=== PATIENT | female | born 1965 | race Caucasian/White ===

== ENCOUNTER → 2021-08-30 10:10 | Outpatient (BNVA) | payer BC, SELFPAY | PROVIDERS: Visit Provider Emergency Medicine | DX: Z20.822 Contact with and (suspected) exposure to COVID-19 (principal); R68.89 Other general symptoms and signs | CPT/HCPCS: 87635 ==

== ENCOUNTER 2022-03-06 17:08 | Emergency (ER) | payer BC, SELFPAY ==
[2022-03-06] VITALS (8 sets, daily range): BP systolic 107–150; BP diastolic 66–84; PULSE 70–82; RESP 14–18; TEMP 36.9; O2SAT 94–98; BMI 25.4
--- NOTE | 2022-03-06 18:58 | ED_ITS ---
HPI - Abdominal Pain General: Chief Complaint: Abdominal Pain Stated Complaint: sent from clinic, possible appy Time Seen by Provider: 03/06/22 18:58 History of Present Illness: Ms. Stein is a 56-year-old lady with history of hypertension and history of abdominal surgeries including cholecystectomy and hernia repair presenting to the emergency department due to right lower quadrant abdominal pain. Onset of symptoms was 2 days ago without known provoking event. Since that time has had sharp stabbing pain which has been constant and worsening. Worse with ambulation. Does note nausea but no vomiting. No other associated GI symptoms. Presented to outside clinic and was referred to the emergency department for further evaluation due to concern of appendicitis. No other specific changes in health, exacerbating, or alleviating factors identified. Onset (ago): hour(s) Pain Consistency: constant Location: RLQ Severity: moderate Quality: stabbing and sharp Radiation: none Migration to: no migration Exacerbating factors: movement and other (Ambulation) Relieving factors: nothing Associated Symptoms: Reports nausea; Denies constipation, diarrhea, dysuria and vomiting Review of Systems General: Reports: 10 or more systems reviewed and unremarkable except in HPI and below GI: Reports: nausea; Denies: vomiting, diarrhea or constipation : Denies: dysuria PFSH ED PFSH: Medical History (Updated 03/06/22 @ 22:24 by Eber Palacio MD) Hypertension Surgical History (Updated 03/06/22 @ 19:15 by Eber Palacio MD) History of cholecystectomy History of hernia repair Social History Smoking and tobacco status: current every day smoker Female Reproductive History: Spontaneous abortions: No Physical Exam Const: COMMON NORMALS: alert GENERAL APPEARANCE: cooperative and well developed HENMT: COMMON NORMALS: normocephalic and atraumatic HEAD & SCALP: normocephalic and atraumatic Eye: COMMON NORMALS: conjunctivae normal CONJUNCTIVA: Yes conjunctivae normal SCLERA: sclerae normal Neck/C-Spine: COMMON NORMALS: supple GENERAL: Yes trachea midline Resp: COMMON NORMALS: clear to auscultation bilaterally EFFORT & INSPECTION: Yes able to speak in complete sentences AUSCULTATION: clear to auscultation bilaterally Cardio: COMMON NORMALS: regular rate and regular rhythm RATE: regular rate RHYTHM: regular rhythm GI: COMMON NORMALS: Soft to palpation PALPATION: Yes Soft to palpation, Yes Tenderness to palpation present (GI) Details: RLQ, No Guarding due to palpation present (GI), No Rigid due to palpation and Yes Rebound tenderness present (Right lower quadrant tenderness to heeltap) PERCUSSION: normal to percussion Extremity: GENERAL: Yes normal exam except as noted and No edema Neuro: COMMON NORMALS: moves all extremities SENSORIUM/ORIENTATION: Yes alert and No Orientation impaired Psych: COMMON NORMALS: mental status grossly normal and Normal thought process present THOUGHT PROCESS: Normal thought process present Course Vital Signs: Vital signs: Vital Signs Temperature 98.5 F 03/06/22 17:23 Pulse Rate 74 03/06/22 23:29 Respiratory Rate 17 03/06/22 23:29 Blood Pressure 107/70 03/06/22 23:29 Pulse Oximetry 96 03/06/22 23:29 Oxygen Delivery Me thod 03/06/22 20:52 MDM - Abdominal Pain Medical Decision Making 56-year-old lady presenting with abdominal pain and associated symptoms. Patient is nontoxic on exam. Abdominal exam as above without evidence of acute surgical abdomen. Labs with minimal leukocytosis and hemoconcentration. No significant electrolyte abnormality. Hematuria with squamous epithelial contamination on urinalysis though there is bacteria. Given abdominal exam I do feel that CT imaging is appropriate. CT imaging without acute causes of patient's symptoms identified. Appendix is normal and visualized per radiology report. Patient proved with antiemetic, analgesia. She is able to tolerate p.o. intake. The exact etiology of patient's symptoms is unspecified abdominal pain, perhaps related to urinary infection. The results of ED evaluation were discussed with the patient including prescriptions and/or symptomatic cares (if applicable) including appropriate and responsible use, followup plan, and return precautions. The patient verbalized understanding and felt safe for discharge. Medical Records I reviewed the patient's medical records. Lab Data I reviewed the patient's lab results. 03/06/22 19:00 03/06/22 19:00 Labs/Radiology: Radiology Impressions Abdomen/Pelvis CT 03/06/22 19:13 IMPRESSION: 1. The appendix is normal in appearance. No evidence of appendicitis. 2. No acute abnormality demonstrated in the abdomen and pelvis. COMMENTS: Consistent with the [employer]'s Incidental Findings Committee white paper (J Am Luis Alberto Radiol 2018): Any incidental renal lesion less than 1 cm or classified as too small to characterize, or any incidental cystic renal lesion characterized as simple-appearing, is likely benign. No follow-up imaging is recommended for these lesions per consensus recommendations based on imaging criteria. Laboratory Results WBC 11.1 10^3/uL (4.0-10.0) H 03/06/22 19:00 RBC 4.94 10^6/uL (4.1-5.3) 03/06/22 19:00 Hgb 15.5 g/dL (11.5-15.3) H 03/06/22 19:00 Hct 46.2 % (37.0-47.0) 03/06/22 19:00 MCV 93.5 fl (81-99) 03/06/22 19:00 MCH 31.4 pg (28.0-34.0) 03/06/22 19:00 MCHC 33.5 g/dL (30.0-36.0) 03/06/22 19:00 RDW 12.9 % (12.1-15.1) 03/06/22 19:00 Plt Count 288 10^3/cmm (130-400) 03/06/22 19:00 MPV 9.2 fL (7.4-10.4) 03/06/22 19:00 Neut % (Auto) 50.4 % 03/06/22 19:00 Lymph % (Auto) 34.5 % 03/06/22 19:00 [place] % (Auto) 10.7 % 03/06/22 19:00 Eos % (Auto) 3.2 % 03/06/22 19:00 Baso % (Auto) 0.8 % 03/06/22 19:00 Neut # (Auto) 5.59 10^3/uL (1.8-7.7) 03/06/22 19:00 Lymph # (Auto) 3.8 10^3/uL (0.8-4.8) 03/06/22 19:00 [place] # (Auto) 1.2 10^3/uL (0.2-0.9) H 03/06/22 19:00 Eos # (Auto) 0.4 10^3/uL (0.0-0.8) 03/06/22 19:00 Baso # (Auto) 0.1 10^3/uL (0.0-0.1) 03/06/22 19:00 Nucleated RBC % (auto) 0 % 03/06/22 19:00 Nucleated RBCs # 0.0 /100WBC 03/06/22 19:00 Sodium 139 mmol/L (136-145) 03/06/22 19:00 Potassium 4.6 mmol/L (3.5-5.1) 03/06/22 19:00 Chloride 103 mmol/L (98-107) 03/06/22 19:00 Carbon Dioxide 27 mmol/L (22-29) 03/06/22 19:00 Anion Gap 13.6 (5-19) 03/06/22 19:00 BUN 8 mg/dL (6-20) 03/06/22 19:00 Creatinine 0.6 mg/dL (0.5-0.9) 03/06/22 19:00 GFR Calculation 103.4 mL/min (90-130) 03/06/22 19:00 Glucose 99 mg/dL (65-115) 03/06/22 19:00 Calculated Osmolality 286 mOsm/kg (285-295) 03/06/22 19:00 Calcium 10.7 mg/dL (8.5-10.5) H 03/06/22 19:00 Total Bilirubin 0.4 mg/dL (0.15-1.2) 03/06/22 19:00 AST 19 U/L (0-32) 03/06/22 19:00 ALT 19 U/L (0-33) 03/06/22 19:00 Alkaline Phosphatase 90 U/L (35-105) 03/06/22 19:00 Total Protein 7.4 g/dL (6.6-8.7) 03/06/22 19:00 Albumin 4.5 g/dL (3.5-5.2) 03/06/22 19:00 Globulin 2.9 g/dL (1.3-4.6) 03/06/22 19:00 Lipase 27 U/L (13-60) 03/06/22 19:00 HCG, Qual Negative (Negative) 03/06/22 19:00 Urine Color Yellow (Yellow) 03/06/22 19:13 Urine Appearance Clear (CLEAR) 03/06/22 19:13 Urine pH 7 (5-7) 03/06/22 19:13 Ur Specific [place] 1.010 (1.005-1.030) 03/06/22 19:13 Urine Protein Neg (Negative) 03/06/22 19:13 Urine Glucose (UA) Norm (Normal) 03/06/22 19:13 Urine Ketones Negative (Negative) 03/06/22 19:13 Urine Blood 2+ (Negative) H 03/06/22 19:13 Urine Nitrate Negative (Negative) 03/06/22 19:13 Urine Bilirubin Neg (Negative) 03/06/22 19:13 Urine Urobilinogen Norm mg/dL (Negative) 03/06/22 19:13 Ur Leukocyte Esterase Negative (Negative) 03/06/22 19:13 Urine RBC 0-4 /hpf (0-2) H 03/06/22 19:13 Urine WBC 0-4 /hpf (0-5) H 03/06/22 19:13 Ur Squamous Epith Cells 5-10 /hpf (0-5) H 03/06/22 19:13 Amorphous Sediment Not Reportable 03/06/22 19:13 Urine Bacteria 3+ /hpf (NONE) H 03/06/22 19:13 Discharge Plan Discharge Patient Disposition: Home Clinical Impression: Abdominal pain, Hematuria, UTI (urinary tract infection) Condition: Stable Prescriptions: New ondansetron 4 mg tablet,disintegrating 4 mg PO Q8H PRN (Reason: nausea and vomiting) Qty: 15 0RF oxycodone 5 mg tablet 5 mg PO Q4H PRN (Reason: pain) Qty: 10 0RF Flomax 0.4 mg capsule 0.4 mg PO DAILY Qty: 20 0RF No Action lisinopril 40 mg tablet 40 mg PO DAILY oxycodone-acetaminophen [Percocet] 10-325 mg tablet 1 tab PO Q8H PRN acetaminophen [Tylenol] 325 mg capsule 325 mg PO QID PRN phenylephrine HCl [Sinus Decongestant (PE)] 10 mg tablet 10 mg PO Q6H [id number] [Bromfed DM] 2-30-10 mg/5 mL syrup 7.5 ml PO Q6H PRN (Reason: cold symptoms) Qty: 160 0RF dexamethasone 2 mg tablet 6 mg PO DAILY 5 Days Qty: 15 0RF Paxlovid (EUA) 150 mg x 2- 100 mg tablet See Rx Instructions PO PER PKG DIR Qty: 1 0RF Rx Instructions: PO PER PKG DIR Discharge Orders: Discharge ED (Routine); Ordered 03/06/22 Ordered By: Eber Palacio Referrals: Raul More [Primary Care Provider] - Discharge Diet: Usual diet Discharge Activity: Increase activity as tolerated Patient Instructions: Urinary Tract Infection in Women (ED), Hematuria (ED), Abdominal Pain (ED), Opioid Safety, Pain Management Activity Restrictions/Additional Instructions: Thank you for visiting the emergency department. You were seen and evaluated for abdominal pain. The exact cause of your symptoms is unclear however given the findings on urinalysis may be related to mild urinary tract infection or recently passed kidney stone. I will prescribe pain medication, antinausea medication, and antibiotics as well as medication to help decrease spasms of the ureter. Please follow-up with your primary care provider. Return to the emergency department for uncontrolled symptoms or anything else that you are concerned about a feel needs emergency department evaluation. Coding Level of Care Code ED [employer] for Chg Fwd Exam Comprehensive
--- NOTE | 2022-03-06 19:13 | CTR_ITS ---
PROCEDURE INFORMATION: Exam: CT Abdomen And Pelvis With Contrast Exam date and time: 03/06/2022 8:22 PM Age: 56 years old Clinical indication: Pain; Other: Rlq; Prior surgery; Surgery date: 6+ months; Surgery type: Partial hyst, ; additional info: Rlq pain, ? appy TECHNIQUE: Imaging protocol: Computed tomography of the abdomen and pelvis with contrast. Radiation optimization: All CT scans at this facility use at least one of these dose optimization techniques: automated exposure control; mA and/or kV adjustment per patient size (includes targeted exams where dose is matched to clinical indication); or iterative reconstruction. Contrast material: OMNI 350; Contrast volume: 95 ml; Contrast route: INTRAVENOUS (IV); COMPARISON: CT angio chest PE protcl [id number] 04/02/2016 3:22 PM RADIATION DOSE METRICS: Total DLP (mGy-cm): 358.01 FINDINGS: Lungs: 5 mm calcified granuloma right lung base. Liver: The liver is unremarkable in appearance. Gallbladder and bile ducts: The gallbladder is surgically absent. Pancreas: The pancreas is normal in appearance. No pancreatic duct dilatation. Spleen: The spleen is normal in size and appearance. Adrenal glands: The adrenal glands appear within normal limits. Kidneys and ureters: 6 mm simple appearing right renal cyst. No solid renal masses. No hydronephrosis. Normal ureters. No obstructive uropathy. Stomach and bowel: No acute gastric abnormality demonstrated. The small bowel is unremarkable as demonstrated. No acute abnormality/inflammatory change of the colon. Appendix: The appendix is normal in appearance. No evidence of appendicitis. Intraperitoneal space: No pneumoperitoneum. No significant fluid collection. Vasculature: The aorta is atherosclerotic. No aortic aneurysm. Lymph nodes: No pathologically enlarged lymph nodes are demonstrated. Urinary bladder: The urinary bladder is unremarkable in appearance. Reproductive: The uterus is not visualized, consistent with hysterectomy. Bones/joints: Unremarkable. No acute osseous abnormality. Soft tissues: Unremarkable. CT/CT abdomen pelvis w con* [id number] IMPRESSION: 1. The appendix is normal in appearance. No evidence of appendicitis. 2. No acute abnormality demonstrated in the abdomen and pelvis. COMMENTS: Consistent with the [employer]'s Incidental Findings Committee white paper (J Am Luis Alberto Radiol 2018): Any incidental renal lesion less than 1 cm or classified as too small to characterize, or any incidental cystic renal lesion characterized as simple-appearing, is likely benign. No follow-up imaging is recommended for these lesions per consensus recommendations based on imaging criteria.
[2022-03-06 19:14] LABS: Basophils # 0.1 10^3/uL (0.0-0.1); Basophils % 0.8 %; Eosinophils # 0.4 10^3/uL (0.0-0.8); Eosinophils % 3.2 %; Hematocrit 46.2 % (37.0-47.0); Hemoglobin 15.5 g/dL (11.5-15.3); Lymphocytes # 3.8 10^3/uL (0.8-4.8); Lymphocytes % 34.5 %; Mean Corpuscular HGB Conc 33.5 g/dL (30.0-36.0); Mean Corpuscular Hemoglobin 31.4 pg (28.0-34.0); Mean Corpuscular Volume 93.5 fl (81-99); Mean Platelet Volume 9.2 fL (7.4-10.4); Monocytes # 1.2 10^3/uL (0.2-0.9); Monocytes % 10.7 %; Neutrophils # 5.59 10^3/uL (1.8-7.7); Neutrophils % 50.4 %; Nucleated Red Blood Cells % 0 %; Platelet Count 288 10^3/cmm (130-400); Red Blood Count 4.94 10^6/uL (4.1-5.3); Red Cell Distribution Width 12.9 % (12.1-15.1); White Blood Count 11.1 10^3/uL (4.0-10.0)
[2022-03-06] MEDS: morphine 4 mg/mL SDV 1 mL IVP ×2 (19:22→20:51)
[2022-03-06] MEDS: ondansetron 2 mg/ML SDV 2 mL 4 MG IVP ×2 (19:23→22:45)
[2022-03-06 19:38] LABS: HCG, Serum Qual Negative (Negative)
[2022-03-06 19:43] LABS: Alanine Aminotransferase 19 U/L (0-33); Albumin Level 4.5 g/dL (3.5-5.2); Alkaline Phosphatase 90 U/L (35-105); Anion Gap 13.6 (5-19); Aspartate Amino Transferase 19 U/L (0-32); Blood Urea Nitrogen 8 mg/dL (6-20); Calcium 10.7 mg/dL (8.5-10.5); Carbon Dioxide 27 mmol/L (22-29); Chloride 103 mmol/L (98-107); Globulin 2.9 g/dL (1.3-4.6); Glomerular Filtration Rate 103.4 mL/min (90-130); Glucose 99 mg/dL (65-115); Lipase 27 U/L (13-60); Osmolality Calculated 286 mOsm/kg (285-295); Potassium 4.6 mmol/L (3.5-5.1); Sodium 139 mmol/L (136-145); Total Bilirubin 0.4 mg/dL (0.15-1.2); Total Protein 7.4 g/dL (6.6-8.7)
[2022-03-06 19:55] LABS: Add Urine Microscopic? YES; Bilirubin Urine Neg (Negative); Blood Urine 2+ (Negative); Glucose Urine UA Norm (Normal); Ketones Urine Negative (Negative); Leukocyte Esterase Urine Negative (Negative); Nitrate Urine Negative (Negative); Protein Urine Neg (Negative); Urine Appearance Clear (CLEAR); Urine Color Yellow (Yellow); Urobilinogen Urine Norm (Negative); pH Urine 7 (5-7)
[2022-03-06 19:56] LABS: Add Urine Culture? Yes; Bacteria Urine 3+ /hpf; RBC Urine 0-4 /hpf (0-2); WBC Urine 0-4 /hpf (0-5)
[2022-03-06] MEDS: iohexol 350 mg/mL 500 mL Btl (per mL) IV (20:26)
[2022-03-06] MEDS: oxyCODONE 5 mg IR Tab/Cap PO (22:46)
[2022-03-06] MEDS: cefTRIAXone 1,000 MG in sodium chloride 0.9% (plus) 50 ML 100 MG IV (22:47)
== END 2022-03-06 23:31 | disposition home or self-care (01) ==
PROVIDERS: Physician Assistant; Emergency Provider Emergency Medicine; PCP Physician Assistant
DX: N39.0 Urinary tract infection, site not specified (principal); R31.9 Hematuria, unspecified; I10 Essential (primary) hypertension; F17.210 Nicotine dependence, cigarettes, uncomplicated
CPT/HCPCS: 36415; 74177; 80053; 81001; 83690; 84703; 85025; 87086; 96365; 96375; 96376; 99285; J0696; J2270; J2405; Q9967